=== PATIENT | female | born 2000 | race Caucasian/White ===

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

== ENCOUNTER 2023-12-01 05:17 | Inpatient (IN) ==
[2023-12-01 06:18] LABS: ABS Basophils 0.1 10^3/uL (0.0-0.1); ABS Eosinophils 0.1 10^3/uL (0.0-0.5); ABS Lymphocytes 1.3 10^3/uL (1.0-4.8); ABS Monocytes 0.5 10^3/uL (0.0-0.9); ABS Neutrophils 9.6 10^3/uL (1.5-7.6); Hematocrit 35.9 % (35-45); Hemoglobin 11.5 g/dL (11.5-14.3); Lymphocyte % 11.4 %; Mean Corpuscular Hemoglobin 24.4 pg (27-33); Mean Corpuscular Volume 76.2 fL (80-97); Mean Platelet Volume 8.3 fL (7.5-11.2); Platelet Count 286 10^3/uL (150-450); Red Blood Count 4.71 10^6/uL (3.63-4.92); Red Cell Distribution Width 18.4 % (12-17); White Blood Count 11.6 10^3/uL (3.8-11.8)
[2023-12-01 06:27] LABS: Urine Benzodiazepine Screen None Detected (None Detect); Urine Cannabinoids Screen Presumptive Positive (None Detect); Urine Opiates Screen None Detected (None Detect)
[2023-12-01 06:43] LABS: ALT 11 U/L (7-52); AST 20 U/L (13-39); Acetaminophen < 15 mcg/mL; Albumin 4.8 g/dL (3.2-5.2); Albumin/Globulin Ratio 1.4 (1-3); Alcohol, S < 13 mg/dL (<13); Alkaline Phosphatase 63 U/L (35-149); Anion Gap 10 mmol/L (2-16); Blood Urea Nitrogen 25 mg/dL (6-24); CO2 Carbon Dioxide 24 mmol/L (22-32); Calcium 9.9 mg/dL (8.6-10.3); Chloride 107 mmol/L (101-111); Creatinine, Serum 0.77 mg/dL (0.51-0.95); Globulin 3.5 g/dL (2-4); Glucose 114 mg/dL (70-100); Potassium 3.9 mmol/L (3.5-5.0); Salicylate < 2.50 mg/dL (<30); Sodium 141 mmol/L (135-145); Total Bilirubin 0.5 mg/dL (0.2-1.0); Total Protein 8.3 g/dL (6.4-8.9); eGFR CKD-EPI 110.4 (>60)
[2023-12-01 06:49] LABS: HCG Pregnancy < 0.60 mIU/mL
[2023-12-01 06:58] LABS: TSH Ultra Thyroid Stim Horm 1.51 mcIU/mL (0.34-5.60)
[2023-12-01] MEDS: Nicotine PATCH 21 MG/24 HR PATCH TRANSDERM ONE (07:04)
[2023-12-01] MEDS ORDERED: LORazepam 2 mg VIAL 1 ml ONE (08:38)
[2023-12-01] MEDS ORDERED: Al Hydrox/Mg Hydrox/Simet LIQ 30 ML UDC PO PRN (09:10)
[2023-12-01] MEDS: OLANZapine 5 mg TAB *ODT PO ONE (13:38)
[2023-12-01] MEDS: OLANZapine 10 mg TAB*ODT PO ONE (13:52)
[2023-12-01] MEDS: Midazolam 5 mg/ml concentrated 5 mg/ml 1 ml VIAL INJ ONE (14:21)
[2023-12-02] MEDS: LORazepam 2 MG/ML 1 mL Syringe ONE (08:55)
[2023-12-02] MEDS: Haloperidol 5 mg/ml SDV IV/IM 5 MG/ML AMP ONE (08:55)
[2023-12-02] MEDS: chlorproMAZINE 25 MG/ML 2 ML (50 MG) ONE (09:07)
[2023-12-02] MEDS: Nicotine PATCH 21 MG/24 HR PATCH TRANSDERM SCH (13:01)
[2023-12-03] MEDS: Benztropine 2 mg AMP 1 MG/ML 2 ml AMP IM ONE (10:50)
[2023-12-03] MEDS: Benztropine 2 mg AMP 1 MG/ML 2 ml AMP ONE (11:28)
[2023-12-03] MEDS: Amoxicillin/Clavul 875/125 TAB (Augmentin 875 tab) PO ONE (17:44)
[2023-12-03] MEDS: LORazepam 2 MG/ML 1 mL Syringe ONE (18:23)
[2023-12-03] MEDS: Haloperidol 5 mg/ml SDV IV/IM 5 MG/ML AMP ONE (18:23)
[2023-12-03] MEDS: Haloperidol 5 mg/ml SDV IV/IM 5 MG/ML AMP IM ONE (20:19)
[2023-12-03] MEDS: LORazepam 2 MG/ML 1 mL Syringe IM ONE (20:19)
[2023-12-04] MEDS: OLANZapine 5 mg TAB *ODT PO PRN (09:06)
[2023-12-14] MEDS: chlorproMAZINE 25 MG/ML 2 ML (50 MG) ONE (12:01)
[2023-12-14] MEDS: chlorproMAZINE 25 MG/ML 2 ML (50 MG) IM ONE (12:46)
[2023-12-14] MEDS: Lithium Carbonate ER 450mg TAB PO SCH (20:30)
[2023-12-15] MEDS: risperiDONE-M 1 mg Oradis TAB PO SCH (10:58)
[2023-12-15] MEDS: Polyethylene Glycol 3350 17 GM PACKET PO PRN (19:59)
[2023-12-16] MEDS: OLANZapine IM (NF) 10 MG VIAL IM ONE (11:55)
[2023-12-21] MEDS: Magnesium CITRATE LIQ 300 ML BTL PO ONE (11:08)
[2023-12-23 08:59] VITALS: BP 129/74
== END 2023-12-23 13:30 | disposition home or self-care (01) | DRG 753 ==
LOC: ED 05:17 → EDHOLD 09:10 → BSU 16:54
PROVIDERS: ADMIT Psychiatry & Neurology Psychiatry; ATTEND Psychiatry & Neurology Psychiatry